=== PATIENT | male | born 1995 | race Caucasian/White ===

== ENCOUNTER 2018-08-10 14:50 | Inpatient (IN) ==
[2018-08-10] MEDS ORDERED: SEROQUEL PO PRN (15:45)
[2018-08-10] MEDS ORDERED: TYLENOL PO PRN (15:45)
[2018-08-10] MEDS ORDERED: DULCOLAX PR PRN (15:45)
[2018-08-10] MEDS ORDERED: SENOKOT PO PRN (15:45)
[2018-08-10] MEDS ORDERED: PHENOBARBITAL IV PRN (15:45)
[2018-08-10] MEDS ORDERED: MAALOX PLUS LIQUID PO PRN (15:45)
[2018-08-10] MEDS ORDERED: D5W 1,000 ML IV PRN (15:45)
[2018-08-10] MEDS ORDERED: SINEMET 25/100 PO PRN (15:45)
[2018-08-10] MEDS ORDERED: ZOFRAN ODT PO PRN (15:45)
[2018-08-10] MEDS ORDERED: ZOFRAN IM PRN (15:45)
[2018-08-10] MEDS ORDERED: LIBRIUM PO PRN (15:45)
[2018-08-10] MEDS ORDERED: DESYREL PO PRN (15:45)
[2018-08-10] MEDS ORDERED: IMODIUM PO PRN (15:45)
[2018-08-10] MEDS ORDERED: BENTYL PO PRN (15:45)
[2018-08-10 17:07] LABS: HEMATOCRIT 47.2 % (42.0-52.0); HEMOGLOBIN 16.1 g/dL (14.0-18.0); MCH 31.2 PG (27-31); MCHC 34.1 g/dL (33-37); MCV 91.5 FL (81-99); MPV 11.1 FL (7.4-10.4); RBC 5.16 XMIL (4.7-6.1); RDW 13.8 % (11.5-14.5); WBC 11.17 X1000 (4.8-10.8)
[2018-08-10 17:17] LABS: URINE SOURCE CLEAN CATCH
[2018-08-10 17:22] LABS: INR 0.85
[2018-08-10 17:34] LABS: AMYLASE 69 U/L (20-200); LIPASE 27 U/L (13-60)
[2018-08-10 17:36] LABS: AGAP 11; ALBUMIN 4.2 g/dL (3.5-5.0); ALKALINE PHOSPHATASE 100 U/L (32-122); BUN 10 mg/dL (8-22); CALCIUM 9.2 mg/dL (8.8-10.2); CHLORIDE 104 mmol/L (98-107); COSMO 278; CREATININE 0.8 mg/dL (0.7-1.2); ESTIMATED GFR > 60; GLUCOSE 66 mg/dL (70-104); GOT 10 U/L (10-34); GPT 11 U/L (10-44); POTASSIUM 4.3 mmol/L (3.5-5.1); SODIUM 141 mmol/L (136-145); TCO2 27 mmol/L (25-35); TOTAL PROTEIN 6.5 g/dL (6.3-8.3)
[2018-08-10 17:42] LABS: BILIRUBIN URINE NEGATIVE (NEGATIVE); BLOOD URINE NEGATIVE (NEGATIVE); CLARITY CLEAR (CLEAR); COLOR YELLOW; GLUCOSE URINE NEGATIVE (NEGATIVE); KETONE URINE NEGATIVE (NEGATIVE); LEUKOCYTES URINE NEGATIVE (NEGATIVE); NITRITE URINE NEGATIVE (NEGATIVE); PROTEIN URINE NEGATIVE (NEGATIVE); UROBILINOGEN URINE NORMAL
[2018-08-10] MEDS ORDERED: M.V.I.-12 10 ML, FOLIC ACID 1 MG, MAGNESIUM SULFATE 1 GM, THIAMINE 100 MG in NS 1,000 ML IV ONE (18:00)
[2018-08-10] MEDS ORDERED: TUBERSOL ID ONE (18:00)
[2018-08-10 19:00] LABS: UR AMPHETAMINES QUAL NONE DETECTED (NONE DETECT); UR BARBITUATES QUAL NONE DETECTED (NONE DETECT); UR BENZODIAZEPIN QUAL NONE DETECTED (NONE DETECT); UR CANNABINOIDS QUAL PRESUMPTIVE POSITIVE (NONE DETECT); UR COCAINE QUAL NONE DETECTED (NONE DETECT); UR METHADONE QUAL NONE DETECTED (NONE DETECT); UR METHAMPHETAMINE QUAL NONE DETECTED (NONE DETECT); UR OPIATES QUAL NONE DETECTED (NONE DETECT); UR OXYCODONE QUAL NONE DETECTED (NONE DETECT); UR PCP QUAL NONE DETECTED (NONE DETECT); UR PROPOXYPHENE QUAL NONE DETECTED (NONE DETECT); UR TCA QUAL NONE DETECTED (NONE DETECT)
[2018-08-10] MEDS: SUBOXONE 2 MG/0.5 MG FILM SL SCH (20:05)
[2018-08-11] MEDS: ROBAXIN PO PRN (03:16)
[2018-08-11] MEDS: ATARAX PO PRN (03:16)
[2018-08-11] MEDS: MOTRIN PO PRN (03:16)
[2018-08-11] MEDS: PROTONIX PO SCH (06:24)
[2018-08-11] MEDS: VITAMIN B-1 PO SCH (08:36)
[2018-08-11] MEDS: FOLIC ACID PO SCH (08:36)
[2018-08-11] MEDS: THERA M PLUS PO SCH (08:36)
[2018-08-11] MEDS: SUBOXONE 2 MG/0.5 MG FILM SL SCH ×2 (08:36→20:26)
[2018-08-11 20:20] LABS: HIV ANTIBODY SCREEN SEE COMMENTS
[2018-08-12] MEDS: PROTONIX PO SCH (06:13)
--- NOTE | 2018-08-12 07:46 | PROGRESS NOTE ---
DATE: 08/11/2018 SUBJECTIVE: Patient was seen and examined by myself on the . Notes that overall, he is starting to feel a little bit better. Still having some muscle aches though. PHYSICAL EXAMINATION: Vital Signs: Temperature 97.4, pulse 60, respiratory rate 18, BP 120/70. General: Patient is awake, alert, currently in no respiratory distress. HEENT : Normocephalic. Neck: Supple. Cardiovascular: Regular rate. Chest: Clear. Extremities: Moves all extremities. ASSESSMENT: 1. Nausea and vomiting. 2. Abdominal pain. 3. Myalgias. 4. Paresthesias. 5. Paroxysmal sweating. 6. Opiate abuse, withdrawal, and stabilization. PLAN: We have checked HIV testing which was negative. Hepatitis testing is still pending. Currently have patient on Suboxone due to his polysubstance use and abuse. We will attempt to wean. We will continue counseling. Further orders as needed. cc: Iftikhar Smith MD MTDD
[2018-08-12] MEDS: FOLIC ACID PO SCH (08:03)
[2018-08-12] MEDS: NICODERM PATCH TD PRN (08:03)
[2018-08-12] MEDS: SUBOXONE 2 MG/0.5 MG FILM SL SCH ×2 (08:03→21:08)
[2018-08-12] MEDS: VITAMIN B-1 PO SCH (08:04)
[2018-08-12] MEDS: THERA M PLUS PO SCH (08:04)
--- NOTE | 2018-08-12 08:26 | HISTORY AND PHYSICAL ---
Patient seen and examined by myself on the . CHIEF COMPLAINT: Nausea and vomiting. HISTORY OF PRESENT ILLNESS: The patient is a 23-year-old male who [facility] secondary to nausea, vomiting, abdominal pain, tremors, myalgias and paresthesias. Notes he has been abusing several substances to include opiates and would like help to get his life back. SOCIAL HISTORY: Patient is legally . He is currently unemployed. Lives at home in [place]. PAST MEDICAL HISTORY: Depression, anxiety, history of hypertension. MEDICATIONS: No current prescription medications. ALLERGIES: No known drug allergies. REVIEW OF SYSTEMS: CINA score is 9 secondary to frequent nausea, diaphoresis, myalgias, frequent diarrhea, abdominal pain, restlessness. Denies any hematochezia, melena, hematuria, dysuria, urinary frequency. Denies headaches, blurred vision, change in vision. Denies any focalized numbness, tingling or weakness. FAMILY HISTORY: Noncontributory. SUBSTANCE ABUSE HISTORY: Patient saw Dr. Rucker in 2009 outpatient for depression. Was in [facility] in 2018 secondary to substance abuse. The patient notes that when he was 19, his mom was murdered. His dad 2 months later. Both of them used and abused drugs and since then, he has continued to worsen. Started smoking marijuana at age 12, currently smoking every day. Started depressants at 16, currently using half a bar every day to every other day. Started stimulants at age 17, currently uses a gram or more per day. Started cocaine at 17, currently takes it most days. Started opiates at age 17, currently using IV heroin as much as he can find and afford. Started smoking at age 17, currently smokes a pack a day. PHYSICAL EXAMINATION: VITAL SIGNS: Reviewed and stable. GENERAL: Patient is awake, alert, currently in no respiratory distress but is somewhat ill- appearing due to withdrawal symptoms. Denies any chest pain. HEENT: Normocephalic. NECK: Supple. CARDIOVASCULAR: Regular rate. No murmurs. CHEST: Clear, nonlabored. ABDOMEN: Soft, nondistended, nontender. EXTREMITIES: Moves all extremities. NEUROLOGIC: No focal changes. SKIN: Warm, dry. No rashes. INCOMPLETE REPORT- DICTATION ENDS HERE cc: Iftikhar Smith MD
[2018-08-12 15:33] LABS: HEPATITIS PROFILE ACUTE SEE COMMENTS
--- NOTE | 2018-08-12 17:45 | PROGRESS NOTE ---
DATE: 08/12/2018 SUBJECTIVE: Patient notes overall he is doing better. Still having lots of muscle aches, although they are improving. Denies any nausea and vomiting. However, states he still has a very poor appetite. Denies any fevers or chills. Denies any dysuria or fevers. OBJECTIVE: Vital signs: Temperature 97.4, pulse 54, respiratory rate 18, BP 129/63. General: Patient is in no current respiratory distress. Overall he is doing better, although slowly. HEENT: Normocephalic. Neck: Supple. Cardiovascular: Regular rate. Chest: Clear and unlabored. Abdomen: Soft. ASSESSMENT: 1. Nausea and vomiting. 2. Abdominal pain. 3. Myalgias. 4. Paresthesias. 5. Paroxysmal sweating. 6. Opiate abuse, withdrawal, and stabilization. PLAN: We will continue to wean Suboxone as tolerated. The patient has plans to go to further inpatient treatment and we are attempting to totally wean off while in the hospital. So far it has been a slow progression. cc: Iftikhar Smith MD
[2018-08-12] MEDS: ROBAXIN PO PRN (21:08)
[2018-08-12] MEDS: MOTRIN PO PRN (21:08)
[2018-08-13] MEDS: PROTONIX PO SCH ×2 (05:55→08:02)
[2018-08-13] MEDS: THERA M PLUS PO SCH (08:03)
[2018-08-13] MEDS: VITAMIN B-1 PO SCH (08:03)
[2018-08-13] MEDS: FOLIC ACID PO SCH (08:03)
[2018-08-13] MEDS: SUBOXONE 2 MG/0.5 MG FILM SL SCH (08:03)
[2018-08-13] MEDS: NICODERM PATCH TD PRN (18:57)
[2018-08-13] MEDS ORDERED: SUBUTEX SL SCH (21:00)
[2018-08-13] MEDS: ATARAX PO PRN (21:15)
[2018-08-14] MEDS: PROTONIX PO SCH (06:17)
[2018-08-14] MEDS: FOLIC ACID PO SCH (08:40)
[2018-08-14] MEDS: THERA M PLUS PO SCH (08:40)
[2018-08-14] MEDS: VITAMIN B-1 PO SCH (08:40)
[2018-08-14 09:30] VITALS: BP 130/59
--- NOTE | 2018-08-15 21:04 | DISCHARGE SUMMARY ---
ADMISSION DATE: 08/10/2018 DISCHARGE DATE: 08/14/2018 DISCHARGE DIAGNOSIS: 1. Nausea, vomiting. 2. Abdominal pain . 3. Myalgias. 4. Paresthesias. 5. Opiate abuse withdrawal and stabilization. 6. Chronic anxiety, depression. CONSULTATIONS: None. PROCEDURE: None . BRIEF HOSPITAL COURSE: Patient was admitted to the hospital treated in the usual fashion, placed on Suboxone due to his opiate withdrawal symptoms as noted on HPI. Thankfully he had uneventful hospital course. On discharge he is awake, alert, he is in no distress, overall he is feeling better, states his withdrawal symptoms all but alleviated. DISPOSITION: Greater than 30 minutes was spent in total care. Discussed patient he needs to avoid all persons, places, situations which he has been using and abusing the past. He needs outpatient life counseling as well as drug counseling. cc: Iftikhar Smith MD
== END 2018-08-14 10:55 | disposition home or self-care (01) | DRG 897 ==
LOC: P.MEDSURG 16:21
PROVIDERS: ADMIT Family Medicine; ATTEND Family Medicine
CPT/HCPCS: 80053; 80074; 80104; 80301; 80305; 80307; 80320; 82055; 82150; 83690; 85027; 85610; 86701; 87389; A9270; G0431; G0434; G0477; G0480; G6040; J3411; J3475; J7030